=== PATIENT | male | born 1975 | race Caucasian/White ===

== ENCOUNTER 2017-05-13 11:33 | Emergency (ER) | payer OTHER ==
[2017-05-13 13:36] VITALS: BP 121/73
[2017-05-13] MEDS ORDERED: cefTRIAXone VIAL(*) 1,000 MG VIAL IM ONE (14:12)
[2017-05-13] MEDS ORDERED: Lidocaine 1% MPF* 2 ML VIAL INJ ONE (14:14)
--- NOTE | 2017-05-13 14:20 | UC ---
General HPI - HPI Summary HPI Summary: 41 yo gentleman c/o here for evaluation and management after possible excposure to std (partner + chlamydia per pt report). Denies urinary sx, denies sores or ulcers. No adenopathy. No GI issues. Recent urii, no fever. No rash. Last contact approx 1 week ago. - History of Current Complaint Chief Complaint: UCGeneralIllness Stated Complaint: PERSONAL Time Seen by Provider: 05/13/17 13:44 Hx Obtained From: Patient - Allergy/Home Medications Allergies/Adverse Reactions: Allergies Allergy/AdvReac Type Severity Reaction Status Date / Time No Known Allergies Allergy Verified 05/13/17 13:28 PMH/Surg Hx/FS Hx/Imm Hx Previously Healthy: Yes - Surgical History Surgical History: None - Family History Known Family History: Positive: None - Social History Alcohol Use: Occasionally Substance Use Type: None Smoking Status (MU): Never Smoked Tobacco - Immunization History Most Recent Influenza Vaccination: none 2016 Review of Systems Constitutional: Negative Skin: Negative Eyes: Negative ENT: Negative, Other - recent uri Respiratory: Negative Cardiovascular: Negative Gastrointestinal: Negative Genitourinary: Negative, Other - see hpi Motor: Negative Neurovascular: Negative Musculoskeletal: Negative Neurological: Negative Psychological: Negative Is Patient Immunocompromised?: No All Other Systems Reviewed And Are Negative: Yes Physical Exam Triage Information Reviewed: Yes Appearance: Well-Nourished Vital Signs: Initial Vital Signs Temp 98 F 05/13/17 13:28 Pulse 64 05/13/17 13:28 Resp 16 05/13/17 13:28 BP 121/73 05/13/17 13:28 Pulse Ox 100 05/13/17 13:28 Vital Signs Reviewed: Yes Eye Exam: Normal ENT Exam: Normal ENT: Positive: Pharynx normal, TM dull Neck exam: Normal Neck: Positive: Supple, Nontender, No Lymphadenopathy Respiratory Exam: Normal Respiratory: Positive: Chest non-tender, Lungs clear, Normal breath sounds, No respiratory distress, No accessory muscle use Cardiovascular Exam: Normal Cardiovascular: Positive: RRR, No Murmur, Pulses Normal, Brisk Capillary Refill , Tachycardia Abdominal Exam: Normal Abdomen Description: Positive: Nontender, Other: - - normal male genitalia. No appreciable sores or rash. No adenopathy. No drainage visible or reported. No lesions noted, with the exception of a dark mole R lower pelvis (per pt has been present for years, not new) Musculoskeletal Exam: Normal Neurological Exam: Normal - grossly intact Psychological Exam: Normal - conversing easily and appropriately Skin Exam: Normal Course/Dx - Course Course Of Treatment: Declines Hepatitis testing (thinks immunized). Request HIV. Will check GC, chlamydia, RPR. Does not wish to take azithromycin x 1 (2/ 2 sens stomach), but will take 10 day doxycycline course. Aware of importance of completion of abx. [place] [place] REcommend f/u dermatology re moles - Differential Dx - Multi-Symptom Provider Diagnoses: STD exposure Discharge - Discharge Plan Condition: Stable Disposition: HOME Prescriptions: DOXYcycline CAP(*) [DOXYcycline 100MG CAP(*)] 100 mg PO BID #20 cap Patient Education Materials: Sexually Transmitted Diseases (ED) [place] [facility] [place]] Vimal Kirkpatrick MD [Primary Care Provider] - Additional Instructions: Avoid sexual relations until you have been completely treated (antibiotic complete) and your results have been reviewed with you. Seek medical attention for worse or new problems. Please follow up with a DANCE TEACHER regarding your MOLES.
[2017-05-15 11:26] LABS: Syphilis Index < 0.1 Index
== END 2017-05-13 15:25 | disposition home or self-care (01) ==
LOC: UCCORT 11:33
DX: Z20.2 Contact with and (suspected) exposure to infections with a predominantly sexual mode of transmission (principal)
CPT/HCPCS: 36415; 86592; 86703; 87491; 87591; 96372; 99212; G0463; J0696

== ENCOUNTER 2018-04-27 08:16 | Emergency (ER) | payer OTHER ==
[2018-04-27 09:00] VITALS: BP 108/76
--- NOTE | 2018-04-27 10:01 | UC ---
Lower Extremity/Ankle HPI - HPI Summary HPI Summary: 42 yo male presents with bug bite to left ankle 3 days ago. He tells me that he was mowing the lawn and felt a bug bite or sting him on this inside of his left ankle. Has been very itchy since and over the last 3 days has gotten more red and swollen. Has been applying neosporin. Denies fever or chills. - History of Current Complaint Chief Complaint: LUIS Akin Stated Complaint: LEFT ANKLE INJURY Time Seen by Provider: 04/27/18 09:42 Hx Obtained From: Patient Onset/Duration: Gradual Onset Severity Currently: None Pain Intensity: 0 - Allergies/Home Medications Allergies/Adverse Reactions: Allergies Allergy/AdvReac Type Severity Reaction Status Date / Time No Known Allergies Allergy Verified 04/27/18 08:55 PMH/Surg Hx/FS Hx/Imm Hx - Additional Past Medical History Additional PMH: None - Surgical History Surgical History: None - Family History Known Family History: Positive: None - Social History Occupation: Employed Full-time Lives: With Family Alcohol Use: Occasionally Substance Use Type: None Smoking Status (MU): Never Smoked Tobacco - Immunization History Most Recent Influenza Vaccination: none 2016 Review of Systems Constitutional: Negative Skin: Other - Bug bite left ankle Eyes: Negative ENT: Negative Respiratory: Negative Neurovascular: Negative Neurological: Negative Psychological: Negative All Other Systems Reviewed And Are Negative: Yes Physical Exam - Summary Physical Exam Summary: GENERAL: NAD. WDWN. No pain distress. SKIN: Left medial ankle: Bug bite with 2.0cm surrounding cellulitis moderate erythema and edema. No streaking, bleeding, or drainage. NECK: Supple. Nontender. No lymphadenopathy. CHEST: No accessory muscle use. Breathing comfortably and in no distress. CV: Pulses intact. Cap refill <2seconds NEURO: Alert. PSYCH: Age appropriate behavior. Triage Information Reviewed: Yes Vital Signs: Initial Vital Signs Temp 98.1 F 04/27/18 08:51 Pulse 60 04/27/18 08:51 Resp 16 04/27/18 08:51 BP 108/76 04/27/18 08:51 Pulse Ox 97 04/27/18 08:51 Vital Signs Reviewed: Yes Lower Extremity Course/Dx - Course Course Of Treatment: Cellulitis due to bug bite - Differential Dx/Diagnosis Provider Diagnoses: Cellulitis due to bug bite Discharge - Sign-Out/Discharge Documenting (check all that apply): Patient Departure All imaging exams completed and their final reports reviewed: No Studies - Discharge Plan Condition: Stable Disposition: HOME Prescriptions: Cephalexin CAP* [Keflex CAP*] 500 mg PO TID #21 cap Triamcinolone 0.1% CREAM(NF) [Kenalog Cream 0.1%(NF)] 1 applic TOPICAL BID #1 tube Patient Education Materials: Cellulitis (ED), Insect Bite or Sting (ED) Referrals: Jackie Sinha MD [Primary Care Provider] - Additional Instructions: If you develop a fever, shortness of breath, chest pain, new or worsening symptoms - please call your PCP or go to the ED. - Billing Disposition and Condition Condition: STABLE Disposition: Home - Attestation Statements Provider Attestation: Per institutional requirements, I have reviewed the chart, however, I was not consulted specifically or made aware of this patient by the midlevel provider. I did not personally evaluate, interact with , or disposition this patient.
== END 2018-04-27 10:13 | disposition home or self-care (01) ==
LOC: UCCORT 08:16
DX: S90.562A Insect bite (nonvenomous), left ankle, initial encounter (principal); L03.116 Cellulitis of left lower limb; W57.XXXA Bitten or stung by nonvenomous insect and other nonvenomous arthropods, initial encounter; Y93.9 Activity, unspecified; Y92.9 Unspecified place or not applicable
CPT/HCPCS: 99212; G0463

== ENCOUNTER 2018-11-15 19:37 | Emergency (ER) | payer OTHER ==
[2018-11-15] MEDS ORDERED: Promethazine TAB* 25 MG PO ONE (20:50)
[2018-11-15] MEDS ORDERED: Ibuprofen TAB* 600 MG PO ONE (20:50)
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
[2018-11-15 21:13] VITALS: BP 149/79
== END 2018-11-15 21:11 | disposition home or self-care (01) ==
LOC: ED 19:37
DX: S00.83XA Contusion of other part of head, initial encounter (principal); W21.03XA Struck by baseball, initial encounter; Y93.64 Activity, baseball; Y92.320 Baseball field as the place of occurrence of the external cause; Y99.8 Other external cause status
CPT/HCPCS: 70450; 70486; 99282; A9270-GY

== ENCOUNTER 2019-06-24 15:05 | Emergency (ER) | payer OTHER ==
[2019-06-24 15:54] VITALS: BP 126/82
--- NOTE | 2019-06-24 16:07 | UC ---
Eye Complaint HPI - HPI Summary HPI Summary: Pt presents with c/o left eye discomfort, upper and lower eyelid swelling, eye redness and clear drainage. Pt denies injury . Pt does report that he nguyen snot wear his contacts as directed and did not take them out when he went to bed on Tuesday night. Pt states that eye is uncomfortable - History of Current Complaint Chief Complaint: UCEye Stated Complaint: LEFT EYE IRRITATION Time Seen by Provider: 06/24/19 15:56 Hx Obtained From: Patient Onset/Duration: Sudden Onset, Lasting Days, Still Present Timing: Constant Severity Initially: Mild Severity Currently: Mild Pain Intensity: 2 Aggravating Factor(s): Contact Lens Alleviating Factor(s): Nothing Associated Signs And Symptoms: Positive: Drainage (Clear) - Risk Factors Penetrating Injury Risk Factor: Negative Globe Rupture Risk Factors: Negative Acute Glaucoma Risk Factors: Negative Optic Artery Occlusion Risk Factors: Negative - Allergies/Home Medications Allergies/Adverse Reactions: Allergies Allergy/AdvReac Type Severity Reaction Status Date / Time No Known Allergies Allergy Verified 06/24/19 15:54 PMH/Surg Hx/FS Hx/Imm Hx Previously Healthy: Yes - Surgical History Surgical History: None - Family History Known Family History: Positive: Cardiac Disease - Social History Occupation: Employed Full-time Lives: With Family Alcohol Use: Occasionally Substance Use Type: None Smoking Status (MU): Never Smoked Tobacco Have You Smoked in the Last Year: No - Immunization History Most Recent Influenza Vaccination: none 2016 Review of Systems All Other Systems Reviewed And Are Negative: Yes Constitutional: Positive: Negative Skin: Positive: Negative Eyes: Positive: Drainage - left, Eye Redness - left ENT: Positive: Negative Respiratory: Positive: Negative Cardiovascular: Positive: Negative Gastrointestinal: Positive: Negative Genitourinary: Positive: Negative Motor: Positive: Negative Neurovascular: Positive: Negative Musculoskeletal: Positive: Negative Neurological: Positive: Negative Psychological: Positive: Negative Is Patient Immunocompromised?: No Physical Exam Triage Information Reviewed: Yes Appearance: Well-Appearing Vital Signs: Initial Vital Signs Temp 97.6 F 06/24/19 15:47 Pulse 53 06/24/19 15:47 Resp 12 06/24/19 15:47 BP 126/82 06/24/19 15:47 Pulse Ox 97 06/24/19 15:47 Vital Signs Reviewed: Yes Eyes: Positive: Conjunctiva Inflamed, Discharge - clear, scleritis; upper and lower eyelid swelling ENT Exam: Normal Dental Exam: Normal Neck exam: Normal Respiratory: Positive: No respiratory distress Musculoskeletal Exam: Normal Neurological Exam: Normal Psychological Exam: Normal Skin Exam: Normal Eye Complaint Course/Dx - Course Course Of Treatment: I offered pt ful aster examination and he declined, said he just wanted antibiotic eye drops - Differential Dx/Diagnosis Differential Diagnosis/HQI/PQRI: Conjunctivitis, Corneal Abrasion Provider Diagnosis: Redness of eye, left, Left eye pain Discharge ED - Sign-Out/Discharge Documenting (check all that apply): Patient Departure All imaging exams completed and their final reports reviewed: No Studies - Discharge Plan Condition: Stable Disposition: HOME Prescriptions: Ofloxacin 0.3% (Eye Drop) [Ocuflox OPTH 0.3% (Eye Drop)] 2 drop LEFT EYE Q4H 7 Days #1 btl Patient Education Materials: Eye Pain (ED), Conjunctivitis (ED) Referrals: Jackie Sinha MD [Primary Care Provider] - If Needed - Billing Disposition and Condition Condition: STABLE Disposition: Home - Attestation Statements Provider Attestation: I was available for consult. This patient was seen by the JIAN. The patient was not presented to , seen by or examined by -Prashanth Donald MD
== END 2019-06-24 16:14 | disposition home or self-care (01) ==
LOC: UCCORT 15:05
DX: H57.12 Ocular pain, left eye (principal); H57.89 Other specified disorders of eye and adnexa
CPT/HCPCS: 99212; G0463

== ENCOUNTER 2019-09-13 11:04 | Emergency (ER) | payer OTHER ==
[2019-09-13 12:23] VITALS: BP 115/72
--- NOTE | 2019-09-13 12:32 | UC ---
Respiratory Complaint HPI - HPI Summary HPI Summary: 44 male with cough > 1 month productive at times chest tight feverish at times hx of bronchitis - History of Current Complaint Chief Complaint: UCRespiratory Stated Complaint: VOMITING COUGH CHILLS Time Seen by Provider: 09/13/19 12:24 Hx Obtained From: Patient Onset/Duration: Gradual Onset, Lasting Weeks Timing: Constant Severity Initially: Mild Severity Currently: Moderate Pain Intensity: 2 Pain Scale Used: 0-10 Numeric Character: Cough: Nonproductive Associated Signs And Symptoms: Positive: Wheezing, Nasal Congestion - Allergies/Home Medications Allergies/Adverse Reactions: Allergies Allergy/AdvReac Type Severity Reaction Status Date / Time No Known Allergies Allergy Verified 09/13/19 12:16 Home Medications: Home Medications Amoxicillin PO (*) [Amoxicillin 875 MG (*)] 875 mg PO BID #14 tab 09/13/19 [Rx] predniSONE 20 mg TAB [Deltasone 20 MG TAB*] 40 mg PO DAILY #8 tab 09/13/19 [Rx] PMH/Surg Hx/FS Hx/Imm Hx Previously Healthy: Yes - Surgical History Surgical History: None - Family History Known Family History: Positive: Cardiac Disease, Hypertension - Social History Alcohol Use: Occasionally Substance Use Type: None Smoking Status (MU): Never Smoked Tobacco Have You Smoked in the Last Year: No - Immunization History Most Recent Influenza Vaccination: none 2016 Review of Systems All Other Systems Reviewed And Are Negative: Yes Constitutional: Positive: Fever Skin: Positive: Negative Eyes: Positive: Negative ENT: Positive: Nasal Discharge Respiratory: Positive: Cough Cardiovascular: Positive: Negative Gastrointestinal: Positive: Negative Genitourinary: Positive: Negative, Dysuria Motor: Positive: Negative Neurovascular: Positive: Negative Musculoskeletal: Positive: Negative Neurological/Mental Status: Positive: Negative Psychological: Positive: Negative Physical Exam Triage Information Reviewed: Yes Appearance: Well-Appearing, No Pain Distress, Well-Nourished Vital Signs: Initial Vital Signs Temp 98.4 F 09/13/19 12:17 Pulse 73 09/13/19 12:17 Resp 20 09/13/19 12:17 BP 115/72 09/13/19 12:17 Pulse Ox 97 09/13/19 12:17 Vital Signs Reviewed: Yes Eyes: Positive: Conjunctiva Clear ENT: Positive: Hearing grossly normal, Nasal congestion, Nasal drainage, Uvula midline. Negative: Tonsillar swelling, Tonsillar exudate, Trismus, Muffled voice, Hoarse voice, Dental tenderness, Sinus tenderness Dental Exam: Normal Neck: Positive: Supple, Nontender, No Lymphadenopathy Respiratory: Positive: Lungs clear, Normal breath sounds, No respiratory distress, No accessory muscle use Cardiovascular: Positive: RRR, No Murmur Abdomen Description: Positive: Nontender, No Organomegaly Bowel Sounds: Positive: Present Musculoskeletal: Positive: ROM Intact, No Edema Neurological: Positive: Alert Psychological Exam: Normal Skin Exam: Normal Respiratory Course/Dx - Differential Dx/Diagnosis Provider Diagnosis: Bronchitis Discharge ED - Sign-Out/Discharge Documenting (check all that apply): Patient Departure All imaging exams completed and their final reports reviewed: Yes - Discharge Plan Condition: Stable Disposition: HOME Prescriptions: Amoxicillin PO (*) [Amoxicillin 875 MG (*)] 875 mg PO BID #14 tab predniSONE 20 mg TAB [Deltasone 20 MG TAB*] 40 mg PO DAILY #8 tab Patient Education Materials: Acute Bronchitis (ED), How to Use a Metered-Dose Inhaler and a Spacer (ED) Referrals: Laurel Fox MD [Primary Care Provider] - 4 Days (if not impropved ) Additional Instructions: rest fluids recheck for new or worsening symptoms - Billing Disposition and Condition Condition: STABLE Disposition: Home
[2019-09-13] MEDS ORDERED: Albuterol HFA INHALER* 8 gm MDI INH ONE (13:15)
== END 2019-09-13 13:42 | disposition home or self-care (01) ==
LOC: UCCORT 11:04
DX: J40 Bronchitis, not specified as acute or chronic (principal); R09.81 Nasal congestion
CPT/HCPCS: 71046; 99213; A9270-GY; G0463; J7512